=== PATIENT | male | born 1975 | race Two or more races ===

== ENCOUNTER 2016-08-18 20:23 | Emergency (ER) | payer OTHER ==
[2016-08-18 19:42] LABS: INFLUENZA A NEG (NEG); INFLUENZA B POS (NEG)
== END 2016-08-18 20:40 | disposition home or self-care (01) ==
LOC: CFTX 20:23
PROVIDERS: Emergency Medicine
DX: J10.1 Influenza due to other identified influenza virus with other respiratory manifestations (principal)
CPT/HCPCS: 87651; 87804; 99283